=== PATIENT | male | born 1995 | race Caucasian/White ===

== ENCOUNTER 2022-02-09 12:36 | Emergency (ER) | payer OTHER ==
[2022-02-09] MEDS ORDERED: IBUPROFEN600 MG PO (15:32)
== END 2022-02-09 16:00 | disposition home or self-care (01) ==
LOC: ER1 12:36
DX: S93.402A Sprain of unspecified ligament of left ankle, initial encounter (principal); X50.9XXA Other and unspecified overexertion or strenuous movements or postures, initial encounter; Y92.009 Unspecified place in unspecified non-institutional (private) residence as the place of occurrence of the external cause
CPT/HCPCS: 73610; 73630; 99283